=== PATIENT | female | born 1975 | race Caucasian/White ===

== ENCOUNTER 2021-12-14 18:19 | Emergency (ER) | payer OTHER ==
[2021-12-14] MEDS ORDERED: NS 1,000 ML IV ONE (18:45)
[2021-12-14] MEDS ORDERED: PROMETHAZINE 25MG/ML 1ML VIAL IV ONE (18:45)
[2021-12-14] MEDS ORDERED: KETOROLAC 30 MG/ML 1ML VIAL IV ONE (18:45)
[2021-12-14] MEDS ORDERED: PROMETHAZINE 25MG/ML 1ML VIAL IM ONE (19:25)
[2021-12-14] MEDS ORDERED: dexameTHASONE 4 MG/ML 1ML VIAL (J1100 PER 1MG) IV ONE (20:05)
[2021-12-14] MEDS ORDERED: MAG SULF 1GM/100ML (MAG RUN) 1 GM in IV 1 EA IV ONE (20:05)
[2021-12-14] MEDS ORDERED: HALOPERIDOL 5MG/ML VIAL (J1630 PER 1) IV ONE (22:00)
[2021-12-14 23:33] VITALS: BP 110/63
== END 2021-12-14 23:36 | disposition home or self-care (01) ==
LOC: M ED 18:19
DX: G43.909 Migraine, unspecified, not intractable, without status migrainosus (principal); F43.10 Post-traumatic stress disorder, unspecified; F41.8 Other specified anxiety disorders; F32.A Depression, unspecified; Z88.3 Allergy status to other anti-infective agents; Z88.5 Allergy status to narcotic agent; Z88.6 Allergy status to analgesic agent; Z91.030 Bee allergy status
CPT/HCPCS: 70450; 96361; 96365; 96366; 96372; 96375; 99284; J1100; J1630; J1885; J2550; J3475